=== PATIENT | female | born 1960 | race Two or more races ===

== ENCOUNTER 2019-10-01 15:41 | Emergency (ER) | payer BC ==
[~2019-10-01] VITALS: Ht 165.1 cm; Wt 75.2 kg
--- NOTE | 2019-10-01 16:00 | NUR ---
pa in room plan for us pt agrees. L calf tighter than R, 2+ DP. no redness/warmth noted. call alana. as
--- NOTE | 2019-10-01 16:41 | NUR ---
US NEG. RECHECK.
[2019-10-01 16:51] VITALS: BP 117/65
== END 2019-10-01 17:18 | disposition home or self-care (01) ==
LOC: ED 16:55
DX: L03.116 Cellulitis of left lower limb (principal); M79.662 Pain in left lower leg
CPT/HCPCS: 99284